=== PATIENT | male | born 1965 | race African-American/Black ===

== ENCOUNTER 2020-11-12 05:06 | Inpatient (IN) | payer MEDICAID, OTHER ==
[~2020-11-12] VITALS: Ht 175.3 cm; Wt 97.3 kg
[2020-11-12 08:12] LABS: BASOPHILS % 0.2 % (0.0-2.0); HEMATOCRIT. 39.4 % (42.0-52.0); HEMOGLOBIN. 12.9 g/dL (14.0-18.0); LYMPHOCYTES % 12.1 % (20.0-50.0); MEAN CORPUSCULAR HEMOGLOBIN 27.9 pg (28.0-32.0); MEAN PLATELET VOLUME 9.8 fl (7.4-10.4); MONOCYTES % 4.2 % (2.0-8.0); NEUTROPHILS % 83.5 % (40.0-76.0); PLATELET 160 x1000/uL (130-400); RED BLOOD CELL COUNT 4.64 mill/uL (4.7-6.1); RED CELL DISTRIBUTION WIDTH 14.7 % (11.6-14.6)
[2020-11-12 08:16] LABS: CHLORIDE 104 mEq/L (98-107)
[2020-11-12 08:20] LABS: ETHANOL BLOOD < 10 mg/dL
[2020-11-12 08:22] LABS: LDL CHOLESTEROL 214 mg/dL (5-100)
[2020-11-12 08:24] LABS: PROTHROMBIN TIME 10.8 sec (9.6-11.0)
[2020-11-12 08:39] LABS: CLARITY URINE CLEAR (CLEAR); COLOR URINE YELLOW (YELLOW); KETONES URINE TRACE (NEGATIVE); LEUKOCYTE ESTERASE URINE NEGATIVE (NEGATIVE); NITRITE URINE NEGATIVE (NEGATIVE); OCCULT BLOOD URINE 2+ (NEGATIVE); PH URINE 5.5 (4.5-8.0); PROTEIN URINE 3+ (NEGATIVE); SPECIFIC GRAVITY URINE 1.019 (1.005-1.030); UROBILINOGEN URINE 0.2 E.U./dL (0.2-1.0)
[2020-11-12 08:53] LABS: *AMPHETAMINES SCREEN URINE NEGATIVE (NEGATIVE); *BARBITURATES SCREEN URINE NEGATIVE (NEGATIVE); *BENZODIAZEPINES SCREEN URINE NEGATIVE (NEGATIVE); *COCAINE SCREEN URINE NEGATIVE (NEGATIVE); METHADONE URINE SCREEN NEGATIVE (NEGATIVE); OPIATES URINE SCREEN NEGATIVE (NEGATIVE)
[2020-11-12 08:54] LABS: CANNABINOID URINE SCREEN NEGATIVE (NEGATIVE); PHENCYCLIDINE URINE SCREEN NEGATIVE (NEGATIVE)
[2020-11-12] MEDS ORDERED: IOHEXOL-350 100 ML BOTTLE ONE (09:59)
[2020-11-12] MEDS ORDERED: INSULIN REGULAR (HUMULIN R) 300UNITS/3ML VIAL SUBCUT ONE (11:00)
[2020-11-12] MEDS ORDERED: ACETAMINOPHEN 650MG/20.3ML UDC GT PRN ×2 (14:30)
[2020-11-12] MEDS ORDERED: ACETAMINOPHEN 325MG TABLET PO PRN (14:30)
[2020-11-12] MEDS ORDERED: ACETAMINOPHEN 650MG SUPP PR PRN ×2 (14:30)
[2020-11-12] MEDS ORDERED: MAGNESIUM/ALUMINUM HYDROXIDE/SIMETHICONE 30ML UDC PO PRN (14:30)
[2020-11-12] MEDS ORDERED: DEXTROSE 50% WATER 50ML SYRINGE IV PRN (14:45)
[2020-11-12 15:00] VITALS: BP 158/99
[2020-11-12] MEDS ORDERED: LISI20TA31 PO (15:49)
[2020-11-12] MEDS ORDERED: ATOR40TA70 PO (15:49)
[2020-11-12] MEDS ORDERED: INSU100I24 SQ (15:49)
[2020-11-12] MEDS ORDERED: INSNOV SUBCUT (15:49)
[2020-11-12 16:00] VITALS: BP 178/96
[2020-11-12] MEDS: ONDANSETRON HCL 4MG/2ML INJ IV PRN (16:32)
[2020-11-12] MEDS: ENOXAPARIN 40MG/0.4ML SYR SUBCUT SCH (16:33)
[2020-11-12] MEDS: BLOOD SUGAR DIAGNOSTIC STRIP TEST SCH ×2 (17:05→20:35)
[2020-11-12] MEDS: INSULIN LISPRO 100 UNITS/ML SUBCUT SCH ×2 (17:45→21:29)
[2020-11-12 20:25] VITALS: BP 160/82
[2020-11-12] MEDS: MECLIZINE 12.5MG TABLET PO SCH (21:27)
[2020-11-12] MEDS: SODIUM CHLORIDE 0.45% 1,000 ML IV SCH (21:27)
[2020-11-12] MEDS: ATORVASTATIN CALCIUM 40MG TABLET PO SCH (21:27)
[2020-11-12] MEDS: INSULIN GLARGINE UD 100 UNITS/ML SYR SUBCUT SCH (21:29)
[2020-11-13] VITALS: BP 122/74
[2020-11-13 04:00] VITALS: BP 106/64
[2020-11-13] MEDS: BLOOD SUGAR DIAGNOSTIC STRIP TEST SCH ×4 (05:33→21:23)
[2020-11-13] MEDS: MECLIZINE 12.5MG TABLET PO SCH (05:33)
[2020-11-13] MEDS: ONDANSETRON HCL 4MG/2ML INJ IV PRN (07:49)
[2020-11-13] MEDS: INSULIN LISPRO 100 UNITS/ML SUBCUT SCH ×4 (07:50→21:30)
[2020-11-13 08:00] VITALS: BP 137/73
[2020-11-13] MEDS: INSULIN GLARGINE UD 100 UNITS/ML SYR SUBCUT SCH ×2 (09:43→21:31)
[2020-11-13] MEDS: ASPIRIN 81MG TABLET PO SCH (09:43)
[2020-11-13 10:37] LABS: BASOPHILS % 0.4 % (0.0-2.0); EOSINOPHILS % 1.1 % (0.0-5.0); HEMATOCRIT. 35.6 % (42.0-52.0); HEMOGLOBIN. 11.6 g/dL (14.0-18.0); LYMPHOCYTES % 18.5 % (20.0-50.0); MEAN CORPUSCULAR HEMOGLOBIN 27.8 pg (28.0-32.0); MEAN CORPUSCULAR VOLUME 85.4 fL (80.0-94.0); MEAN PLATELET VOLUME 9.4 fl (7.4-10.4); MONOCYTES % 8.3 % (2.0-8.0); NEUTROPHILS % 71.7 % (40.0-76.0); PLATELET 153 x1000/uL (130-400); RED BLOOD CELL COUNT 4.17 mill/uL (4.7-6.1)
[2020-11-13 12:00] VITALS: BP 123/69
[2020-11-13 12:02] LABS: CHLORIDE 103 mEq/L (98-107)
[2020-11-13 12:12] LABS: LDL CHOLESTEROL 162 mg/dL (5-100)
[2020-11-13 12:14] LABS: HDL CHOLESTEROL 42 mg/dL (40-59)
[2020-11-13] MEDS: ENOXAPARIN 40MG/0.4ML SYR SUBCUT SCH (14:22)
[2020-11-13] MEDS: MECLIZINE 25MG TABLET PO SCH ×2 (14:22→21:29)
[2020-11-13] MEDS: SODIUM CHLORIDE 0.45% 1,000 ML IV SCH (15:26)
[2020-11-13 16:00] VITALS: BP 147/81
[2020-11-13 20:00] VITALS: BP 148/78
[2020-11-13] MEDS: ATORVASTATIN CALCIUM 40MG TABLET PO SCH (21:29)
[2020-11-14] VITALS: BP 128/70
[2020-11-14 04:00] VITALS: BP 137/82
[2020-11-14] MEDS: SODIUM CHLORIDE 0.45% 1,000 ML IV SCH (04:03)
[2020-11-14] MEDS: MECLIZINE 25MG TABLET PO SCH ×3 (05:12→21:30)
[2020-11-14] MEDS: BLOOD SUGAR DIAGNOSTIC STRIP TEST SCH ×4 (06:12→20:30)
[2020-11-14 06:55] LABS: BASOPHILS % 0.6 % (0.0-2.0); EOSINOPHILS % 2.2 % (0.0-5.0); HEMOGLOBIN. 10.9 g/dL (14.0-18.0); LYMPHOCYTES % 26.1 % (20.0-50.0); MEAN CORPUSCULAR VOLUME 84.3 fL (80.0-94.0); MEAN PLATELET VOLUME 9.5 fl (7.4-10.4); MONOCYTES % 8.2 % (2.0-8.0); NEUTROPHILS % 62.9 % (40.0-76.0); PLATELET 137 x1000/uL (130-400); RED BLOOD CELL COUNT 3.91 mill/uL (4.7-6.1); RED CELL DISTRIBUTION WIDTH 14.6 % (11.6-14.6)
[2020-11-14 08:00] VITALS: BP 135/75
[2020-11-14] MEDS: ASPIRIN 81MG TABLET PO SCH (08:31)
[2020-11-14] MEDS: INSULIN LISPRO 100 UNITS/ML SUBCUT SCH ×4 (08:33→21:40)
[2020-11-14 08:45] LABS: T4 FREE 0.9 ng/dL (0.76-1.46)
[2020-11-14] MEDS: SODIUM CHLORIDE 0.9% 1,000 ML IV SCH (10:04)
[2020-11-14] MEDS: INSULIN GLARGINE UD 100 UNITS/ML SYR SUBCUT SCH (10:07)
[2020-11-14 12:00] VITALS: BP 187/85
[2020-11-14] MEDS ORDERED: ENOXAPARIN 30MG/0.3ML SYR SUBCUT SCH (15:00)
[2020-11-14 16:00] VITALS: BP 181/85
[2020-11-14 16:21] LABS: CREATINE KINASE 142 IU/L (39-308)
[2020-11-14 16:22] LABS: CREATINE KINASE MB FRACTION 1.4 ng/mL (0.5-3.6)
[2020-11-14] MEDS: APIXABAN 5 MG TABLET PO SCH (17:41)
[2020-11-14 20:00] VITALS: BP 172/81
[2020-11-14] MEDS: ATORVASTATIN CALCIUM 40MG TABLET PO SCH (21:30)
[2020-11-14] MEDS: AMLODIPINE 10MG TABLET PO SCH (21:31)
[2020-11-15] VITALS: BP 162/81
[2020-11-15] MEDS: SODIUM CHLORIDE 0.9% 1,000 ML IV SCH ×2 (00:17→13:36)
[2020-11-15] MEDS: INSULIN GLARGINE UD 100 UNITS/ML SYR SUBCUT SCH ×3 (00:25→20:40)
[2020-11-15 01:12] LABS: CREATINE KINASE 159 IU/L (39-308)
[2020-11-15 01:13] LABS: CREATINE KINASE MB FRACTION 1.1 ng/mL (0.5-3.6)
[2020-11-15 04:00] VITALS: BP 147/76
[2020-11-15] MEDS: BLOOD SUGAR DIAGNOSTIC STRIP TEST SCH ×4 (05:31→20:40)
[2020-11-15] MEDS: MECLIZINE 25MG TABLET PO SCH ×3 (05:48→21:17)
[2020-11-15] MEDS: INSULIN LISPRO 100 UNITS/ML SUBCUT SCH ×4 (05:54→21:00)
[2020-11-15 07:19] LABS: BASOPHILS % 0.4 % (0.0-2.0); EOSINOPHILS % 3.8 % (0.0-5.0); HEMATOCRIT. 35.3 % (42.0-52.0); HEMOGLOBIN. 11.6 g/dL (14.0-18.0); LYMPHOCYTES % 20.8 % (20.0-50.0); MEAN CORPUSCULAR HEMOGLOBIN 27.9 pg (28.0-32.0); MEAN CORPUSCULAR VOLUME 85.3 fL (80.0-94.0); MEAN PLATELET VOLUME 9.9 fl (7.4-10.4); PLATELET 137 x1000/uL (130-400); RED BLOOD CELL COUNT 4.14 mill/uL (4.7-6.1); RED CELL DISTRIBUTION WIDTH 14.2 % (11.6-14.6)
[2020-11-15 07:31] LABS: CHLORIDE 108 mEq/L (98-107)
[2020-11-15 07:58] LABS: PHOSPHORUS 4.7 mg/dL (2.5-4.9)
[2020-11-15 08:01] LABS: CREATINE KINASE 153 IU/L (39-308)
[2020-11-15 08:03] LABS: CREATINE KINASE MB FRACTION < 1.0 ng/mL (0.5-3.6)
[2020-11-15] MEDS: APIXABAN 5 MG TABLET PO SCH ×2 (09:15→17:21)
[2020-11-15] MEDS: ASPIRIN 81MG TABLET PO SCH (09:15)
[2020-11-15] MEDS: AMLODIPINE 10MG TABLET PO SCH (09:28)
[2020-11-15] MEDS: ALLOPURINOL 100 MG TABLET PO SCH (17:37)
[2020-11-15 20:00] VITALS: BP 158/88
[2020-11-15] MEDS: ATORVASTATIN CALCIUM 40MG TABLET PO SCH (21:00)
[2020-11-16] VITALS: BP 155/81
[2020-11-16] MEDS: ACETAMINOPHEN 325MG TABLET PO PRN ×2 (01:37→18:04)
[2020-11-16] MEDS: SODIUM CHLORIDE 0.9% 1,000 ML IV SCH ×2 (01:38→15:56)
[2020-11-16 04:00] VITALS: BP 170/90
[2020-11-16] MEDS: MECLIZINE 25MG TABLET PO SCH ×3 (05:35→21:52)
[2020-11-16] MEDS: INSULIN LISPRO 100 UNITS/ML SUBCUT SCH ×4 (05:58→21:54)
[2020-11-16] MEDS: BLOOD SUGAR DIAGNOSTIC STRIP TEST SCH ×4 (05:58→20:54)
[2020-11-16 06:47] LABS: BASOPHILS % 0.4 % (0.0-2.0); EOSINOPHILS % 4.2 % (0.0-5.0); HEMATOCRIT. 34.2 % (42.0-52.0); HEMOGLOBIN. 11.3 g/dL (14.0-18.0); LYMPHOCYTES % 23.3 % (20.0-50.0); MEAN CORPUSCULAR HEMOGLOBIN 28.4 pg (28.0-32.0); MEAN CORPUSCULAR VOLUME 86.2 fL (80.0-94.0); MEAN PLATELET VOLUME 9.4 fl (7.4-10.4); MONOCYTES % 10.1 % (2.0-8.0); PLATELET 129 x1000/uL (130-400); RED BLOOD CELL COUNT 3.96 mill/uL (4.7-6.1); RED CELL DISTRIBUTION WIDTH 14.5 % (11.6-14.6)
[2020-11-16 07:02] LABS: PHOSPHORUS 4.3 mg/dL (2.5-4.9)
[2020-11-16 08:00] VITALS: BP 149/84
[2020-11-16] MEDS: COLCHICINE 0.6MG TABLET PO SCH (09:02)
[2020-11-16] MEDS: ASPIRIN 81MG TABLET PO SCH (09:02)
[2020-11-16] MEDS: APIXABAN 5 MG TABLET PO SCH ×2 (09:02→17:21)
[2020-11-16] MEDS: AMLODIPINE 10MG TABLET PO SCH (09:02)
[2020-11-16] MEDS: ALLOPURINOL 100 MG TABLET PO SCH (09:02)
[2020-11-16] MEDS: INSULIN GLARGINE UD 100 UNITS/ML SYR SUBCUT SCH ×2 (10:54→21:55)
[2020-11-16 12:00] VITALS: BP 159/85
[2020-11-16 20:00] VITALS: BP 156/76
[2020-11-16] MEDS: ATORVASTATIN CALCIUM 40MG TABLET PO SCH (21:52)
[2020-11-17] VITALS (7 sets, daily range): BP systolic 133–171; BP diastolic 73–94
[2020-11-17] MEDS: ACETAMINOPHEN 325MG TABLET PO PRN ×2 (03:19→07:13)
[2020-11-17] MEDS: SODIUM CHLORIDE 0.9% 1,000 ML IV SCH (04:40)
[2020-11-17] MEDS: BLOOD SUGAR DIAGNOSTIC STRIP TEST SCH ×4 (06:19→21:23)
[2020-11-17] MEDS: INSULIN LISPRO 100 UNITS/ML SUBCUT SCH ×4 (06:49→21:43)
[2020-11-17] MEDS: MECLIZINE 25MG TABLET PO SCH ×3 (07:13→21:42)
[2020-11-17 08:44] LABS: BASOPHILS % 0.4 % (0.0-2.0); EOSINOPHILS % 5.4 % (0.0-5.0); HEMATOCRIT. 33.9 % (42.0-52.0); HEMOGLOBIN. 11.2 g/dL (14.0-18.0); LYMPHOCYTES % 28.7 % (20.0-50.0); MEAN CORPUSCULAR HEMOGLOBIN 28.1 pg (28.0-32.0); MEAN CORPUSCULAR VOLUME 85.2 fL (80.0-94.0); MEAN PLATELET VOLUME 9.5 fl (7.4-10.4); NEUTROPHILS % 56.5 % (40.0-76.0); PLATELET 153 x1000/uL (130-400); RED BLOOD CELL COUNT 3.97 mill/uL (4.7-6.1); RED CELL DISTRIBUTION WIDTH 14.9 % (11.6-14.6)
[2020-11-17 09:00] LABS: PHOSPHORUS 4.3 mg/dL (2.5-4.9)
[2020-11-17] MEDS: APIXABAN 5 MG TABLET PO SCH ×2 (10:06→17:57)
[2020-11-17] MEDS: AMLODIPINE 10MG TABLET PO SCH (10:06)
[2020-11-17] MEDS: ASPIRIN 81MG TABLET PO SCH (10:06)
[2020-11-17] MEDS: COLCHICINE 0.6MG TABLET PO SCH (10:06)
[2020-11-17] MEDS: ALLOPURINOL 100 MG TABLET PO SCH (10:06)
[2020-11-17] MEDS: INSULIN GLARGINE UD 100 UNITS/ML SYR SUBCUT SCH (10:16)
[2020-11-17] MEDS ORDERED: HYDRALAZINE HCL 50MG TABLET PO SCH (18:30)
[2020-11-17] MEDS: ATORVASTATIN CALCIUM 40MG TABLET PO SCH (21:42)
== END 2020-11-17 22:18 | DRG 45 ==
LOC: ER 05:26 → EDBEDREQSVC 08:26 → 8WST 12:44 → EDBEDREQ 12:48 → ENRESERV 14:02
PROVIDERS: ADMIT Family Medicine; ATTEND Family Medicine
DX: I63.9 Cerebral infarction, unspecified (principal); N17.0 Acute kidney failure with tubular necrosis; E44.0 Moderate protein-calorie malnutrition; I82.409 Acute embolism and thrombosis of unspecified deep veins of unspecified lower extremity; E11.22 Type 2 diabetes mellitus with diabetic chronic kidney disease; I12.0 Hypertensive chronic kidney disease with stage 5 chronic kidney disease or end stage renal disease; E11.65 Type 2 diabetes mellitus with hyperglycemia; E87.1 Hypo-osmolality and hyponatremia; N18.6 End stage renal disease; E78.5 Hyperlipidemia, unspecified; D64.9 Anemia, unspecified; M10.9 Gout, unspecified; Z20.822 Contact with and (suspected) exposure to COVID-19; I16.1 Hypertensive emergency; N14.1 Nephropathy induced by other drugs, medicaments and biological substances; T50.8X5A Adverse effect of diagnostic agents, initial encounter; Z82.49 Family history of ischemic heart disease and other diseases of the circulatory system; Z83.3 Family history of diabetes mellitus; Z86.711 Personal history of pulmonary embolism; Z86.718 Personal history of other venous thrombosis and embolism; Z86.73 Personal history of transient ischemic attack (TIA), and cerebral infarction without residual deficits; Z79.899 Other long term (current) drug therapy; Z79.4 Long term (current) use of insulin; Y92.89 Other specified places as the place of occurrence of the external cause; Z68.31 Body mass index [BMI] 31.0-31.9, adult
CPT/HCPCS: 36415; 70496; 70498; 70551; 71045; 76770; 78580; 80048; 80053; 80061; 80305; 80320; 81003; 82550; 82553; 82962; 83036; 83721; 83735; 83880; 84100; 84439; 84443; 84484; 84550; 85025; 85379; 87426; 92610; 93005; 93306; 93970; 97112; 97116; 97162; 97166; 97530; 97535; 99285; J1650; J1815; J2405; J7030; J7040; J8597; Q9967; G0480

== ENCOUNTER 2020-11-17 22:05 | Inpatient (IN) | payer MEDICAID ==
[~2020-11-17] VITALS: Ht 175.3 cm; Wt 97.3 kg
[2020-11-17 22:05] VITALS: BP 161/91
[~2020-11-17 22:05] MED LIST: ATOR40TA70 PO; INSNOV SUBCUT; INSU100I24 SQ; LISI20TA31 PO
[2020-11-17] MEDS ORDERED: DEXTROSE 50% WATER 50ML SYRINGE IV PRN (22:45)
[2020-11-17] MEDS ORDERED: MAGNESIUM/ALUMINUM HYDROXIDE/SIMETHICONE 30ML UDC PO PRN (22:45)
[2020-11-17] MEDS ORDERED: ACETAMINOPHEN 650MG/20.3ML UDC PO PRN (22:45)
[2020-11-17] MEDS ORDERED: ACETAMINOPHEN 650MG SUPP PR PRN (22:45)
[2020-11-17] MEDS ORDERED: ONDANSETRON HCL 4MG/2ML INJ IV PRN (22:45)
[2020-11-17] MEDS ORDERED: ACETAMINOPHEN 325MG TABLET PO PRN ×2 (22:45)
[2020-11-17 23:00] VITALS: BP 155/95
[2020-11-18] MEDS: ACETAMINOPHEN 650MG/20.3ML UDC PO PRN ×2 (03:18→23:05)
[2020-11-18] MEDS ORDERED: ACETAMINOPHEN 650MG SUPP PR PRN (04:30)
[2020-11-18] MEDS: MECLIZINE 25MG TABLET PO SCH ×3 (06:38→21:53)
[2020-11-18] MEDS: BLOOD SUGAR DIAGNOSTIC STRIP TEST SCH ×4 (06:38→21:54)
[2020-11-18] MEDS: INSULIN LISPRO 100 UNITS/ML SUBCUT SCH ×4 (06:59→22:25)
[2020-11-18 08:00] VITALS: BP 131/86
[2020-11-18] MEDS ORDERED: HYDRALAZINE HCL 50MG TABLET PO SCH (09:00)
[2020-11-18] MEDS: ALLOPURINOL 100 MG TABLET PO SCH (10:05)
[2020-11-18] MEDS: COLCHICINE 0.6MG TABLET PO SCH (10:06)
[2020-11-18] MEDS: ASPIRIN 81MG TABLET PO SCH (10:06)
[2020-11-18] MEDS: AMLODIPINE 10MG TABLET PO SCH (10:07)
[2020-11-18] MEDS: APIXABAN 5 MG TABLET PO SCH ×2 (10:07→16:08)
[2020-11-18] MEDS: INSULIN GLARGINE UD 100 UNITS/ML SYR SUBCUT SCH ×2 (10:13→22:25)
[2020-11-18 12:36] LABS: BASOPHILS % 0.7 % (0.0-2.0); EOSINOPHILS % 6.6 % (0.0-5.0); HEMATOCRIT. 37.2 % (42.0-52.0); HEMOGLOBIN. 12.2 g/dL (14.0-18.0); LYMPHOCYTES % 31.8 % (20.0-50.0); MEAN CORPUSCULAR HEMOGLOBIN 28.2 pg (28.0-32.0); MEAN CORPUSCULAR VOLUME 86.2 fL (80.0-94.0); MEAN PLATELET VOLUME 9.4 fl (7.4-10.4); MONOCYTES % 8.6 % (2.0-8.0); NEUTROPHILS % 52.3 % (40.0-76.0); PLATELET 177 x1000/uL (130-400); RED BLOOD CELL COUNT 4.32 mill/uL (4.7-6.1); RED CELL DISTRIBUTION WIDTH 14.7 % (11.6-14.6)
[2020-11-18 12:51] LABS: PHOSPHORUS 3.7 mg/dL (2.5-4.9)
[2020-11-18 21:54] VITALS: BP 151/82
[2020-11-18] MEDS: HYDRALAZINE HCL 100MG TABLET PO SCH (21:54)
[2020-11-18] MEDS: ATORVASTATIN CALCIUM 40MG TABLET PO SCH (21:54)
[2020-11-19] MEDS: BLOOD SUGAR DIAGNOSTIC STRIP TEST SCH ×4 (05:47→21:10)
[2020-11-19] MEDS: MECLIZINE 25MG TABLET PO SCH ×3 (05:48→21:10)
[2020-11-19] MEDS: ACETAMINOPHEN 650MG/20.3ML UDC PO PRN (05:48)
[2020-11-19 06:26] LABS: BASOPHILS % 0.7 % (0.0-2.0); EOSINOPHILS % 6.6 % (0.0-5.0); HEMATOCRIT. 34.9 % (42.0-52.0); HEMOGLOBIN. 11.4 g/dL (14.0-18.0); MEAN CORPUSCULAR HEMOGLOBIN 27.9 pg (28.0-32.0); MEAN PLATELET VOLUME 9.4 fl (7.4-10.4); MONOCYTES % 9.2 % (2.0-8.0); NEUTROPHILS % 49.5 % (40.0-76.0); PLATELET 176 x1000/uL (130-400); RED CELL DISTRIBUTION WIDTH 14.6 % (11.6-14.6)
[2020-11-19] MEDS: INSULIN LISPRO 100 UNITS/ML SUBCUT SCH ×4 (06:55→21:14)
[2020-11-19 08:00] VITALS: BP 133/77
[2020-11-19] MEDS: HYDRALAZINE HCL 100MG TABLET PO SCH ×2 (09:42→21:10)
[2020-11-19] MEDS: AMLODIPINE 10MG TABLET PO SCH (09:42)
[2020-11-19] MEDS: ALLOPURINOL 100 MG TABLET PO SCH (09:42)
[2020-11-19] MEDS: COLCHICINE 0.6MG TABLET PO SCH (09:42)
[2020-11-19] MEDS: ASPIRIN 81MG TABLET PO SCH (09:42)
[2020-11-19] MEDS: APIXABAN 5 MG TABLET PO SCH ×2 (09:42→16:45)
[2020-11-19] MEDS: INSULIN GLARGINE UD 100 UNITS/ML SYR SUBCUT SCH ×2 (09:43→21:15)
[2020-11-19 20:00] VITALS: BP 147/80
[2020-11-19] MEDS: ATORVASTATIN CALCIUM 40MG TABLET PO SCH (21:10)
[2020-11-20] MEDS: BLOOD SUGAR DIAGNOSTIC STRIP TEST SCH ×4 (06:23→20:18)
[2020-11-20] MEDS: MECLIZINE 25MG TABLET PO SCH ×3 (06:23→21:54)
[2020-11-20 08:00] VITALS: BP 136/75
[2020-11-20 08:10] VITALS: BP 136/75
[2020-11-20] MEDS: ASPIRIN 81MG TABLET PO SCH (08:12)
[2020-11-20] MEDS: COLCHICINE 0.6MG TABLET PO SCH (08:12)
[2020-11-20] MEDS: ALLOPURINOL 100 MG TABLET PO SCH (08:13)
[2020-11-20] MEDS: HYDRALAZINE HCL 100MG TABLET PO SCH ×2 (08:13→20:18)
[2020-11-20] MEDS: AMLODIPINE 10MG TABLET PO SCH (08:13)
[2020-11-20] MEDS: APIXABAN 5 MG TABLET PO SCH ×2 (08:14→17:25)
[2020-11-20] MEDS: INSULIN LISPRO 100 UNITS/ML SUBCUT SCH ×4 (08:15→22:02)
[2020-11-20] MEDS: INSULIN GLARGINE UD 100 UNITS/ML SYR SUBCUT SCH ×2 (10:50→22:01)
[2020-11-20 20:00] VITALS: BP 138/78
[2020-11-20] MEDS: ATORVASTATIN CALCIUM 40MG TABLET PO SCH (20:18)
[2020-11-20 21:33] VITALS: BP 138/78
[2020-11-21] MEDS: MECLIZINE 25MG TABLET PO SCH ×3 (05:54→21:21)
[2020-11-21] MEDS: INSULIN LISPRO 100 UNITS/ML SUBCUT SCH ×4 (06:02→21:26)
[2020-11-21] MEDS: BLOOD SUGAR DIAGNOSTIC STRIP TEST SCH ×4 (06:02→21:20)
[2020-11-21 06:34] LABS: BASOPHILS % 0.6 % (0.0-2.0); HEMATOCRIT. 36.3 % (42.0-52.0); LYMPHOCYTES % 34.2 % (20.0-50.0); MEAN CORPUSCULAR VOLUME 84.9 fL (80.0-94.0); MEAN PLATELET VOLUME 9.4 fl (7.4-10.4); MONOCYTES % 9.9 % (2.0-8.0); NEUTROPHILS % 49.3 % (40.0-76.0); PLATELET 205 x1000/uL (130-400); RED BLOOD CELL COUNT 4.27 mill/uL (4.7-6.1); RED CELL DISTRIBUTION WIDTH 14.5 % (11.6-14.6)
[2020-11-21 08:00] VITALS: BP 141/85
[2020-11-21 08:09] LABS: PHOSPHORUS 4.2 mg/dL (2.5-4.9)
[2020-11-21] MEDS: APIXABAN 5 MG TABLET PO SCH (09:47)
[2020-11-21] MEDS: COLCHICINE 0.6MG TABLET PO SCH (09:48)
[2020-11-21] MEDS: ASPIRIN 81MG TABLET PO SCH (09:48)
[2020-11-21] MEDS: AMLODIPINE 10MG TABLET PO SCH (09:48)
[2020-11-21] MEDS: HYDRALAZINE HCL 100MG TABLET PO SCH ×2 (09:49→21:20)
[2020-11-21] MEDS: ALLOPURINOL 100 MG TABLET PO SCH (09:49)
[2020-11-21] MEDS: INSULIN GLARGINE UD 100 UNITS/ML SYR SUBCUT SCH ×2 (10:00→21:30)
[2020-11-21] MEDS ORDERED: LORA10TA7 MT (17:28)
[2020-11-21] MEDS ORDERED: APIXABAN 5 MG TABLET PO SCH (18:00)
[2020-11-21] MEDS ORDERED: APIXABAN 5 MG TABLET PO NR (18:05)
[2020-11-21 20:00] VITALS: BP 139/85
[2020-11-21] MEDS: ATORVASTATIN CALCIUM 40MG TABLET PO SCH (21:20)
[2020-11-22] MEDS: BLOOD SUGAR DIAGNOSTIC STRIP TEST SCH ×2 (05:43→11:02)
[2020-11-22] MEDS: MECLIZINE 25MG TABLET PO SCH ×2 (05:48→13:09)
[2020-11-22 06:52] LABS: BASOPHILS % 0.9 % (0.0-2.0); EOSINOPHILS % 5.1 % (0.0-5.0); HEMOGLOBIN. 11.7 g/dL (14.0-18.0); LYMPHOCYTES % 36.8 % (20.0-50.0); MEAN CORPUSCULAR HEMOGLOBIN 28.3 pg (28.0-32.0); MEAN CORPUSCULAR VOLUME 84.9 fL (80.0-94.0); MEAN PLATELET VOLUME 9.2 fl (7.4-10.4); MONOCYTES % 9.2 % (2.0-8.0); PLATELET 199 x1000/uL (130-400); RED BLOOD CELL COUNT 4.12 mill/uL (4.7-6.1); RED CELL DISTRIBUTION WIDTH 14.4 % (11.6-14.6)
[2020-11-22 07:00] LABS: PHOSPHORUS 4.2 mg/dL (2.5-4.9)
[2020-11-22 08:30] VITALS: BP 139/68
[2020-11-22] MEDS: ASPIRIN 81MG TABLET PO SCH (08:31)
[2020-11-22] MEDS: COLCHICINE 0.6MG TABLET PO SCH (08:31)
[2020-11-22] MEDS: HYDRALAZINE HCL 100MG TABLET PO SCH (08:31)
[2020-11-22] MEDS: ALLOPURINOL 100 MG TABLET PO SCH (08:31)
[2020-11-22] MEDS: AMLODIPINE 10MG TABLET PO SCH (08:32)
[2020-11-22] MEDS: INSULIN LISPRO 100 UNITS/ML SUBCUT SCH ×2 (08:36→12:37)
[2020-11-22] MEDS ORDERED: APIXABAN 5 MG TABLET PO SCH (09:00)
[2020-11-22] MEDS: INSULIN GLARGINE UD 100 UNITS/ML SYR SUBCUT SCH (09:48)
[2020-11-28] MEDS ORDERED: APIXABAN 5 MG TABLET PO SCH (17:00)
== END 2020-11-22 16:10 | disposition left against medical advice (07) | DRG 58 ==
PROVIDERS: ADMIT Psychiatry & Neurology Neurology; ATTEND Family Medicine
DX: I69.354 Hemiplegia and hemiparesis following cerebral infarction affecting left non-dominant side (principal); I63.9 Cerebral infarction, unspecified; N17.9 Acute kidney failure, unspecified; I82.432 Acute embolism and thrombosis of left popliteal vein; E11.22 Type 2 diabetes mellitus with diabetic chronic kidney disease; E11.65 Type 2 diabetes mellitus with hyperglycemia; D64.9 Anemia, unspecified; S83.91XA Sprain of unspecified site of right knee, initial encounter; E78.5 Hyperlipidemia, unspecified; E87.1 Hypo-osmolality and hyponatremia; I12.9 Hypertensive chronic kidney disease with stage 1 through stage 4 chronic kidney disease, or unspecified chronic kidney disease; M10.9 Gout, unspecified; N18.9 Chronic kidney disease, unspecified; E66.9 Obesity, unspecified; I82.531 Chronic embolism and thrombosis of right popliteal vein; M19.90 Unspecified osteoarthritis, unspecified site; M77.9 Enthesopathy, unspecified; T50.905A Adverse effect of unspecified drugs, medicaments and biological substances, initial encounter; N14.2 Nephropathy induced by unspecified drug, medicament or biological substance; I16.1 Hypertensive emergency; X58.XXXA Exposure to other specified factors, initial encounter; Y93.89 Activity, other specified; Y92.89 Other specified places as the place of occurrence of the external cause; Y99.8 Other external cause status; Z86.711 Personal history of pulmonary embolism; Z79.899 Other long term (current) drug therapy; Z79.4 Long term (current) use of insulin; Z68.31 Body mass index [BMI] 31.0-31.9, adult
CPT/HCPCS: 36415; 73560; 80048; 82962; 83735; 84100; 85025; 92523; 92610; 93970; 97112; 97116; 97162; 97166; 97530; 97535; J1815; J8597

== ENCOUNTER 2022-05-03 09:35 | Emergency (ER) | payer MEDICAID ==
[~2022-05-03] VITALS: Ht 175.3 cm; Wt 94.0 kg
[~2022-05-03 09:35] MED LIST changes: +LORA10TA7 MT
[2022-05-03 09:46] VITALS: BP 157/84
[2022-05-03] MEDS ORDERED: TOPUD PO (12:11)
== END 2022-05-03 12:48 | disposition home or self-care (01) ==
LOC: ER 09:45
DX: M54.2 Cervicalgia (principal); E11.9 Type 2 diabetes mellitus without complications; I10 Essential (primary) hypertension; Z86.73 Personal history of transient ischemic attack (TIA), and cerebral infarction without residual deficits; Z79.4 Long term (current) use of insulin
CPT/HCPCS: 99284

== ENCOUNTER 2023-08-17 01:06 | Emergency (ER) | payer MEDICAID ==
[~2023-08-17] VITALS: Ht 170.2 cm; Wt 91.0 kg
[~2023-08-17 01:06] MED LIST changes: +TOPUD PO
[2023-08-17 01:59] VITALS: O2SAT 100
[2023-08-17] MEDS ORDERED: SODIUM CHLORIDE 0.9% 1,000 ML IV ONE (03:15)
[2023-08-17] MEDS ORDERED: MORPHINE SULFATE 4 MG/ML CPJ (NOT FOR IM USE) IV ONE (03:15)
[2023-08-17 04:18] LABS: BASOPHILS % 0.7 % (0.0-2.0); HEMATOCRIT. 37.1 % (42.0-52.0); HEMOGLOBIN. 12.2 g/dL (14.0-18.0); LYMPHOCYTES % 13.4 % (20.0-50.0); MEAN CORPUSCULAR HGB CONC 32.9 g/dL (31.0-37.0); MEAN CORPUSCULAR VOLUME 85.1 fL (80.0-94.0); MEAN PLATELET VOLUME 8.7 fl (7.4-10.4); MONOCYTES % 5.9 % (2.0-8.0); PLATELET 187 x1000/uL (130-400); RED BLOOD CELL COUNT 4.36 mill/uL (4.7-6.1); RED CELL DISTRIBUTION WIDTH 16.4 % (11.6-14.6); WHITE BLOOD COUNT 10.4 x1000/uL (4.5-11.0)
[2023-08-17 04:33] LABS: ALANINE AMINOTRANSFERASE 25 IU/L (10-49); ALBUMIN 3.6 g/dL (3.2-4.8); ASPARTATE AMINOTRANSFERASE 24 IU/L (<34); BILIRUBIN TOTAL 0.3 mg/dL (0.1-1.0); CARBON DIOXIDE 18 mEq/L (21-32); CHLORIDE 109 mEq/L (98-107); CREATININE 2.4 mg/dL (0.6-1.3); GLUCOSE 118 mg/dL (70-105); POTASSIUM 4.3 mEq/L (3.5-5.1); SODIUM 136 mEq/L (136-145); TROPONIN I HIGH SENSITIVITY 36 ng/L (3.0-53); UREA NITROGEN BLOOD 39 mg/dL (9-23)
[2023-08-17 04:36] LABS: D-DIMER 0.3 mg/L FEU (<0.50); PROTHROMBIN TIME 10.6 sec (9.6-11.0)
[2023-08-17 04:59] LABS: LACTIC ACID 2.3 mmol/L (0.4-2.0)
[2023-08-17] MEDS ORDERED: MORPHINE SULFATE 4 MG/ML CPJ (NOT FOR IM USE) IV NR (05:45)
[2023-08-17 06:53] LABS: TROPONIN I HIGH SENSITIVITY 46 ng/L (3.0-53)
[2023-08-17 12:00] LABS: CLARITY URINE CLEAR (CLEAR); COLOR URINE YELLOW (YELLOW); GLUCOSE URINE TRACE (NEGATIVE); KETONES URINE NEGATIVE (NEGATIVE); LEUKOCYTE ESTERASE URINE NEGATIVE (NEGATIVE); NITRITE URINE NEGATIVE (NEGATIVE); OCCULT BLOOD URINE 2+ (NEGATIVE); PH URINE 5.5 (4.5-8.0); PROTEIN URINE 3+ (NEGATIVE); SPECIFIC GRAVITY URINE 1.015 (1.005-1.030); UROBILINOGEN URINE 0.2 E.U./dL (0.2-1.0)
[2023-08-17 12:17] LABS: COARSE GRANULAR CASTS URINE 0-5 /lpf; FINE GRANULAR CASTS URINE 0-5 /lpf; HYALINE CASTS URINE 0-5 /lpf
[2023-08-17 12:18] LABS: RBC URINE 0-2 /hpf (0-2); WBC URINE 0-2 /hpf (0-2)
[2023-08-17 12:19] LABS: MUCUS URINE 1+ /lpf (NONE/TRACE); SQUAMOUS EPITHELIAL CELL URINE RARE /lpf (RARE/1+)
[2023-08-17 12:20] LABS: BACTERIA URINE TRACE
[2023-08-17 14:18] VITALS: BP 166/104; PULSE 91; RESP 17; TEMP 97.9
== END 2023-08-17 18:02 | disposition left against medical advice (07) ==
LOC: ER 01:06 → CANBEDREQ 08-18 20:53
DX: R07.9 Chest pain, unspecified (principal); R10.9 Unspecified abdominal pain; E11.9 Type 2 diabetes mellitus without complications; I12.0 Hypertensive chronic kidney disease with stage 5 chronic kidney disease or end stage renal disease; N18.9 Chronic kidney disease, unspecified
CPT/HCPCS: 80053; 81003; 82962; 83605; 83690; 85025; 85379; 85610; 86850; 86900; 86901; 84484; 36415; 71045; 71555; 96361; 96374; 99291; J2270; J7030